=== PATIENT | male | born 1960 | race Caucasian/White ===

== ENCOUNTER 2022-09-23 10:51 | Inpatient (IN) ==
--- NOTE | 2022-09-07 08:51 | PAT Medication Instructions ---
Medication Instructions Date of Service September 07, 2022 Home Medications acetaminophen 650 mg tablet,extended release 1,300 mg PO Q12H PRN Pain cyclobenzaprine 10 mg tablet 10 mg PO TID PRN Pain dutasteride 0.5 mg capsule 0.5 mg PO QAM lisinopril 2.5 mg tablet 2.5 mg PO QAM metformin 1,000 mg tablet 1,000 mg PO BID rosuvastatin 40 mg tablet 40 mg PO QAM DO NOT take the morning of surgery cyclobenzaprine 10 mg tablet 10 mg PO TID PRN Pain lisinopril 2.5 mg tablet 2.5 mg PO QAM metformin 1,000 mg tablet 1,000 mg PO BID Take morning of surgery With a small sip of water, OTHERWISE NOTHING TO EAT OR DRINK AFTER MIDNIGHT: acetaminophen 650 mg tablet,extended release 1,300 mg PO Q12H PRN Pain (if needed) dutasteride 0.5 mg capsule 0.5 mg PO QAM rosuvastatin 40 mg tablet 40 mg PO QAM Take evening before surgery acetaminophen 650 mg tablet,extended release 1,300 mg PO Q12H PRN Pain (if needed) cyclobenzaprine 10 mg tablet 10 mg PO TID PRN Pain (if needed) metformin 1,000 mg tablet 1,000 mg PO BID Other Notes If you have any questions please call us at [phone] or [phone] or [phone] or [phone]
--- NOTE | 2022-09-09 08:58 | Anesthesiology Consultation ---
Date of Service September 09, 2022 Assessment & Plan (1) Encounter for pre-operative examination: - COVID screening: Per assessment on 09/09: No known COVID-19 positive contacts or current COVID-19 related symptoms. Travel screen negative. Patient vaccinated. At surgeon discretion if preop Covid testing being done. - Check [facility] AM DOS Chart Review Chart Review: Acceptable Risk for Surgery and Patient seen in Pre Admission Testing Teaching & Discussion Pre-Anesthesia Teaching/Discussion Notes: Instructed NPO after midnight before surgery,except medications with 15 cc of water. Medication instructions provided according to the PAT guidelines. History Surgery Operation Date: 09/23/22 07:45 Proposed Procedures p L4-S1 Decompression and Fusion, Spinal Cord Monitoring - Francisco High DO Height/Weight Height: 6 ft 1 in Weight: 95.6 kg Allergies Allergy/AdvReac Type Severity Reaction Status Date / Time No Known Drug Allergies Allergy Unknown NONE Verified 09/06/22 15:13 Medications Home Medications Medication Instructions Recorded Confirmed Last Taken acetaminophen 650 mg 1,300 mg PO Q12H PRN Pain 09/06/22 09/06/22 Unknown tablet,extended release cyclobenzaprine 10 mg tablet 10 mg PO TID PRN Pain 09/06/22 09/06/22 Unknown dutasteride 0.5 mg capsule 0.5 mg PO QAM 09/06/22 09/06/22 Unknown lisinopril 2.5 mg tablet 2.5 mg PO QAM 09/06/22 09/06/22 Unknown metformin 1,000 mg tablet 1,000 mg PO BID 09/06/22 09/06/22 Unknown rosuvastatin 40 mg tablet 40 mg PO QAM 09/06/22 09/06/22 Unknown Past Medical History Medical History BPH (benign prostatic hyperplasia) Diabetes mellitus, type 2 NIDDM Hyperlipidemia Hypertension Sleep apnea CPAP (compliant) Exercise / Class Metabolic Activity II 4-5 Yardwork/Stairs/Walk up hill Past Family History Family History Other No family history of adverse response to anesthesia Past Surgical History Surgical History H/O shoulder surgery SCOPE History of amputation RT THUMB (WORK INJURY) History of anesthesia reaction COMBATIVE History of colonoscopy History of esophagogastroduodenoscopy (EGD) History of prostate surgery GREENLIGHT LASER PROCEDURE History of surgery on arm RT BICEP TENDON REPAIR History of tooth extraction Past Anesthesia History No Family Hx of Anesthesia Complications and Other (Pt has been told combative with anesthesia emergence) History of PONV No Hx of PONV and No Hx of Motion Sickness Social History Smoking Status: Heavy tobacco smoker tobacco type: cigarettes Smoking cigarettes per day: 20-40 cigs/day (attempting to decrease/quit) Do You Dip or Chew Tobacco: No Hx Alcohol Use: Yes alcohol intake frequency: holidays/special occasions only Hx Substance Use: No substance use type: does not use Review of Systems Patient denies chest pain, shortness of breath, dyspnea on exertion, fever, chills, cough, wheezing, palpitations. Physical Exam Vital Signs VITALS BP 131/75 P 90 TEMP 98.8 SP02 98%RA RESP 16 PHYSICAL Full cervical extension range of motion. Full TMJ range of motion. TMD 3 finger breaths Mallampati Score 2 Dentition: intact Lungs: clear throughout to auscultation Cardiac: regular rate and rhythm, no murmurs noted Spine: normal Carotid arteries: negative bruit Extremities: no edema Lab Results Anesthesia Preop Results Results Anesthesia Widget: WBC 8.83 K/ul (4.8-10.8) 09/09/22 Hgb 15.4 g/dl (14.0-18.0) 09/09/22 Hct 45.8 % (42.0-52.0) 09/09/22 Plt 240 K/uL (130-400) 09/09/22 Na 137 mmol/L (136-145) 09/09/22 K 4.1 mmol/L (3.5-5.1) 09/09/22 Cl 106 mmol/L (98-107) 09/09/22 CO2 26 mmol/L (21-32) 09/09/22 BUN 18 mg/dl (6-23) 09/09/22 Creat 0.87 mg/dl (0.6-1.4) 09/09/22 Glucose Level 203 mg/dl (70-99(Fasting)) H 09/09/22 PT 10.5 Seconds (9.0-12.0) 09/09/22 PTT 27.3 Seconds (21.0-31.0) 09/09/22 INR 1.0 (0.9-1.1) 09/09/22 HA1c 7.5 % (4.5-5.6) H 09/09/22 Urine Color Yellow 09/09/22 Urine Appearance Clear (Clear) 09/09/22 Urine pH 7.5 (4.5-7.5) 09/09/22 Urine Specific [place] 1.022 (1.000-1.030) 09/09/22 Urine Protein Negative (Negative) 09/09/22 Urine Glucose (UA) 3+ (Negative) H 09/09/22 Urine Ketones Negative (Negative) 09/09/22 Urine Blood Trace (Negative) H 09/09/22 Urine Nitrite Negative (Negative) 09/09/22 Urine Bilirubin Negative (Negative) 09/09/22 Urine Urobilinogen Negative (Negative) 09/09/22 Urine Leukocyte Esterase Negative (Negative) 09/09/22 Urine WBC (Auto) 1-5 /hpf (0-5) 09/09/22 Urine RBC (Auto) 5-10 /hpf (0-4) H 09/09/22 Urine Hyaline Casts (Auto) 0 /lpf (0-5) 09/09/22 Urine Epithelial Cells (Auto) 0-5 /lpf (0-5) 09/09/22 Urine Bacteria (Auto) Negative (Negative) 09/09/22 Blood Type A Negative 09/09/22 Antibody Screen NEGATIVE 09/09/22 Testing Electrocardiogram Date: 09/09/22 SR with occasional PVCs at 92bpm. LAFB. PRWP, consider anterior [place] vs lead placement vs LVH. LAFB now present compared to 02/17/14 per airport refueling handler comparison. Pt reports good functional status and no cardiopulmonary complaints at PAT visit 09/09/22* Chest X-Ray Date: 09/09/22 Findings: + NAD COVID-19 Risk Screen Screening Information COVID-19 Screen Date: 09/09/22 Exposure 21 Days Family/Household +COVID Last 21 Days: No Exposure 10 Days Any COVID Exposure Last 10 Days: No Symptoms Last 10 Days Experienced COVID Sx Last 10 Days: No + COVID 0-90 Days COVID + in Last 0-90 Days: No
[~2022-09-23 10:51] MED LIST: ACETAMINOPHEN 500 MG TAB PO SCH; CeleBREX 200 MG CAP PO SCH; GABAPENTIN 600 MG DOSE PO SCH; LR 15ML/HR IV SCH; ceFAZolin 2000MG 2,000 MG/15 ML SYR IV SCH
[2022-09-23] MEDS ORDERED: LABETALOL HCL IV 5 MG/ML 20ML IV PRN (11:49)
[2022-09-23] MEDS ORDERED: ATROPINE SULFATE 0.1 MG/ML 10ML SYR IV PRN (11:49)
[2022-09-23] MEDS ORDERED: HYDROmorphone INJ 1 MG/ML SYRINGE IV PRN (11:49)
[2022-09-23] MEDS ORDERED: ALBUTEROL 0.083% NEBU SOLN 3 ML VIAL INH PRN (11:49)
[2022-09-23] MEDS ORDERED: ePHEDrine sulfate 50 MG/ML AMP IV PRN (11:49)
[2022-09-23] MEDS ORDERED: ONDANSETRON INJ 2 MG/ML 2 ML VIAL IV PRN ×2 (11:49→17:43)
--- NOTE | 2022-09-23 11:49 | Anesthesiology Consultation ---
Date of Service September 23, 2022 Assessment & Plan Consults Requested medical & cardiac Pulmonary ASA ASA3 Proposed Anesthesia Anesthesia Type: General History Surgery Operation Date: 09/23/22 12:25 Proposed Procedures p L4-S1 Decompression and Fusion, Spinal Cord Monitoring - Francisco High DO Height/Weight Height: 6 ft 1 in Weight: 94.9 kg Allergies Allergy/AdvReac Type Severity Reaction Status Date / Time No Known Drug Allergies Allergy Unknown NONE Verified 09/23/22 11:22 Medications Home Medications Medication Instructions Recorded Confirmed Last Taken acetaminophen 650 mg 1,300 mg PO Q12H PRN Pain 09/06/22 09/23/22 09/23/22 08:00 tablet,extended release cyclobenzaprine 10 mg tablet 10 mg PO TID PRN Pain 09/06/22 09/23/22 09/22/22 20:00 dutasteride 0.5 mg capsule 0.5 mg PO QAM 09/06/22 09/23/22 09/23/22 08:00 lisinopril 2.5 mg tablet 2.5 mg PO QAM 09/06/22 09/23/22 09/22/22 08:00 metformin 1,000 mg tablet 1,000 mg PO BID 09/06/22 09/23/22 09/22/22 20:00 rosuvastatin 40 mg tablet 40 mg PO QAM 09/06/22 09/23/22 09/23/22 08:00 Active Medications Generic Name Dose Route Start Last Admin Trade Name Freq PRN Reason Stop Dose Admin Acetaminophen 1,000 mg 09/23/22 06:00 09/23/22 11:28 Acetaminophen 500 Mg Tab PO 09/23/22 18:00 500 mg PREOP LITA Administration Celecoxib 200 mg 09/23/22 06:00 09/23/22 11:26 Celebrex 200 Mg Cap PO 09/23/22 18:00 200 mg PREOP LITA Administration Gabapentin 600 mg 09/23/22 06:00 09/23/22 11:27 Gabapentin 600 Mg Dose PO 09/23/22 18:00 600 mg PREOP LITA Administration Lactated Ringer's 1,000 mls @ 15 mls/hr 09/23/22 06:00 09/23/22 11:40 Lr IV 09/24/22 05:59 15 mls/hr .Q24H LITA Administration Past Medical History Medical History BPH (benign prostatic hyperplasia) Diabetes mellitus, type 2 NIDDM Hyperlipidemia Hypertension Sleep apnea CPAP (compliant) Past Family History Family History Other No family history of adverse response to anesthesia Past Surgical History Surgical History H/O shoulder surgery SCOPE History of amputation RT THUMB (WORK INJURY) History of anesthesia reaction COMBATIVE History of colonoscopy History of esophagogastroduodenoscopy (EGD) History of prostate surgery GREENLIGHT LASER PROCEDURE History of surgery on arm RT BICEP TENDON REPAIR History of tooth extraction Past Anesthesia History No Hx of Anesthesia Complications History of PONV No Hx of PONV Social History Smoking Status: Heavy tobacco smoker tobacco type: cigarettes Smoking cigarettes per day: 20-40 cigs/day (attempting to decrease/quit) Do You Dip or Chew Tobacco: No Hx Alcohol Use: Yes alcohol intake frequency: holidays/special occasions only Hx Substance Use: No substance use type: does not use Review of Systems Respiratory: no problem reported Cardiovascular: no problem reported Physical Exam Vital Signs Last Vital Signs Temp 37.1 C 09/23/22 11:16 Pulse 75 09/23/22 11:16 Resp 20 09/23/22 11:16 BP 114/78 09/23/22 11:16 Pulse Ox 98 09/23/22 11:16 O2 Del Method Room Air 09/23/22 11:16 ENMT Mallampati Class: II Neck normal visual inspection Respiratory normal respiratory effort; no respiratory distress Auscultation: lungs clear to auscultation bilaterally Cardiovascular Rate/Rhythm: regular rate and regular rhythm Psychiatric Orientation: alert and oriented x 3 Testing Laboratory Results 09/23/22 11:11 POC Glucose 141 H Electrocardiogram Date: 09/09/22 SR with occasional PVCs at 92bpm. LAFB. PRWP, consider anterior [place] vs lead placement vs LVH. LAFB now present compared to 02/17/14 per editorial cartoonist comparison. Pt reports good functional status and no cardiopulmonary complaints at PAT visit 09/09/22* Chest X-Ray Date: 09/09/22 Findings: + NAD
--- NOTE | 2022-09-23 13:27 | History & Physical Bridge Note ---
Date of Service September 23, 2022 History & Physical Bridge Note I have examined the patient, reviewed the History & Physical and in the interval since the performance of the History & Physical I have noted the following changes of clinical significance: no changes noted
--- NOTE | 2022-09-23 13:28 | History & Physical Report ---
Date of Service September 23, 2022 Assessment & Plan (1) Neurogenic claudication due to lumbar spinal stenosis: Plan: L4-S1 decompression and fusion History of Present Illness Chief Complaint: Back and leg pain Primary Care Provider: Kathy Abdi This is a 62-year-old male presents with chronic persistent back and leg pain after failing course of nonoperative care is here for surgical intervention. Allergies Allergy/AdvReac Type Severity Reaction Status Date / Time No Known Drug Allergies Allergy Unknown NONE Verified 09/23/22 11:22 Home Medications Medication Instructions Recorded Confirmed Type acetaminophen 650 mg 1,300 mg PO Q12H PRN Pain 09/06/22 09/23/22 History tablet,extended release cyclobenzaprine 10 mg tablet 10 mg PO TID PRN Pain 09/06/22 09/23/22 History dutasteride 0.5 mg capsule 0.5 mg PO QAM 09/06/22 09/23/22 History lisinopril 2.5 mg tablet 2.5 mg PO QAM 09/06/22 09/23/22 History metformin 1,000 mg tablet 1,000 mg PO BID 09/06/22 09/23/22 History rosuvastatin 40 mg tablet 40 mg PO QAM 09/06/22 09/23/22 History Past Med/Surg History Medical History BPH (benign prostatic hyperplasia) Diabetes mellitus, type 2 NIDDM Hyperlipidemia Hypertension Sleep apnea CPAP (compliant) Surgical History H/O shoulder surgery SCOPE History of amputation RT THUMB (WORK INJURY) History of anesthesia reaction COMBATIVE History of colonoscopy History of esophagogastroduodenoscopy (EGD) History of prostate surgery GREENLIGHT LASER PROCEDURE History of surgery on arm RT BICEP TENDON REPAIR History of tooth extraction Family History Other No family history of adverse response to anesthesia Social History Smoking Status: Heavy tobacco smoker Cigarettes Per Day: 20-40 cigs/day (attempting to decrease/quit); Second Hand Exposure: Yes; Do You Dip or Chew Tobacco: No; Hx Alcohol Use: Yes Hx Substance Use: No Preferred Language: Occitan Stick Welder Required: No Beliefs That Will Affect Care: None Current Living Situation: Spouse Feels Safe at Home: Yes Safety Concerns: Feels Safe At This Time Assistive Devices: CPAP and Glasses Assistive Devices Comment: READING GLASSES Physical Exam Physical Exam: Patient is alert and oriented Heart regular rhythm Lungs clear Results & Data Results & Data Vital Signs (Past 12 Hours) Vital Signs Temp Pulse Resp BP Pulse Ox O2 Del Method 09/23/22 11:16 37.1 C 75 20 114/78 98 Room Air
[2022-09-23] MEDS ORDERED: MIDAZOLAM HCL 1 MG/ML 2ML VIAL ONE (14:07)
[2022-09-23] MEDS ORDERED: fentaNYL citrate PF 100 MCG/2 ML VIAL ONE (14:07)
[2022-09-23] MEDS ORDERED: ROCURONIUM BROMIDE 10 MG/ML 5 ML VIAL IV ONE (14:07)
[2022-09-23] MEDS ORDERED: PROPOFOL IV EMULSION 10 MG/ML 20 ML VIAL IV ONE (14:07)
[2022-09-23] MEDS ORDERED: LIDOCAINE 2% MPF LOCAL 5 ML VIAL INFIL ONE (14:07)
[2022-09-23] MEDS ORDERED: ceFAZolin 330 MG/ML 1 GM VIAL ONE (14:18)
[2022-09-23] MEDS ORDERED: BUPIVACAINE/EPINEPHRINE 0.25% 1:200,000 30 ML VIAL ONE (14:18)
[2022-09-23] MEDS ORDERED: HYDROmorphone INJ 2 MG/ML SYR/VIAL ONE (15:00)
[2022-09-23] MEDS ORDERED: FLOSEAL HEMOSTATIC MATRIX 10ML TOP ONE (15:39)
[2022-09-23] MEDS ORDERED: SURGICEL ABSORB HEMOSTAT 2IN X 14IN TOP ONE (16:02)
[2022-09-23] MEDS ORDERED: NEOSTIGMINE METHYLSULFATE 1 MG/ML 10ML VIAL ONE (16:12)
[2022-09-23] MEDS ORDERED: GLYCOPYRROLATE 0.2 MG/ML VIAL ONE (16:12)
--- NOTE | 2022-09-23 16:19 | Operative Report ---
Post Operative Report Pre & Post Diagnosis Operation Date: 09/23/22 12:25 Pre-Op Diagnosis: Lumbar stenosis with severe foraminal disease and radiculopathy Post-Op Diagnosis: Same I identified the patient and participated in the time-out.: Yes Procedure Operation Date: 09/23/22 12:25 Actual Procedures #1 lumbar decompression bilaterally facetectomies and foraminotomies L3-L4, L4- L5 and L5-S1. #2 posterior spinal fusion L4-L5 L5-S1. #3 placement posterior instrumentation L4-L5 L5-S1. #4 interbody fusion L4-L5 L5-S1. #5 placement of Spira 14 x 26 mm cage at L4-L5 L5-S1. #6 placement locally harvested morselized autograft in the posterior gutters. #7 placement of I factor combined with V toss in the interbody space and posterior gutters. Surgeon Francisco High, Peanut Separator Giovanni Borja Estimated Blood Loss 300 Findings Consistent with Post-Op Diagnosis Specimens None Indications This is a 62-year-old male who presents above-mentioned diagnosis after failed course of nonoperative care is here for surgical invention. Description of Procedure Patient was met with identified informed consent obtained. Patient was then taken to the operative suite underwent a patient placed in a prone position the [place] table top Chaka frame. All bony prominences well-padded eyes inspected to ensure no external pressure placed upon the. This point the lumbar spine was prepped and draped in normal sterile fashion. Sharp dissection with the assistance of Bovie cautery performed down to and exposing the lamina and transverse processes of L4-5 and sacral ala bilaterally. And caudal cephalad fashion complete laminectomy of L5 L4 partial laminectomy L3 was performed including bilateral medial facetectomies and foraminotomies addressing severe spinal stenosis. Pedicle screws were then placed in the left for L5 and S1 levels bilaterally with assistance of fluoroscopy and appropriate sized mikhail placed. By way the transforaminal approach on the right complete discectomy of L5-S1 was performed endplates curetted to subcortical bleeding bone and a 14 x 26 mm Spira cage with I factor tapped in position. Then proceeded to L4-L5 again by way the transforaminal approach on the left complete discectomy was performed endplates curetted to subcortical bleeding bone and a 14 x 26 mm Spira cage with I factor tapped in position. The rods were then compressed locked into final position bilaterally. The transverse processes of L4-L5 and sacral ala burred to subcortical bleeding bone. I factor combined of the test and locally harvested morselized autograft was placed in the posterior gutters. 15 round STEVEN drain inserted. The incision was then closed with 1 Vicryl the fascia 2-0 Vicryl subcutaneously and 4 Monocryl for final skin closure. Steri-Strips sterile dressings placed. Patient waken taken to PACU stable condition. Please note spinal cord monitoring was utilized at the procedure no changes noted. Lastly Giovanni Borja was present at the entire surgery and while the patient positioning complex portion of the surgery and final skin closure. I attest to the content of the Intraoperative Record and any orders documented therein. Any exceptions are noted below.
--- NOTE | 2022-09-23 16:25 | Fluoroscopy Report ---
FL lumbar spine 2-3V CLINICAL HISTORY: L4-S1 DFI COMPARISON STUDY: None. FLUOROSCOPY TIME: 23 seconds FLUOROSCOPY IMAGES: 2 Ka,r: 18.6 mGy FINDINGS: Posterior decompression and fusion from L3 through S1 with pedicle screws and rods. The bo dware appears intact. IMPRESSION: Fluoroscopic assistance as above. ACT 112: Negative or not required by law. Electronically signed by: George Ambrosio M.D. 09/23/2022 4:23 PM
[2022-09-23] MEDS ORDERED: traMADol HCL 50 MG TABLET PO PRN (17:43)
[2022-09-23] MEDS ORDERED: diphenhydrAMINE Capsule 25 MG CAP PO PRN (17:43)
[2022-09-23] MEDS ORDERED: LORazepam 2 MG/1 ML VIAL IV PRN (17:43)
[2022-09-23] MEDS ORDERED: NALOXONE HCL 0.4 MG/1 ML VIAL/CARP IV PRN (17:43)
[2022-09-23] MEDS ORDERED: DO NOT ADMINISTER PNEUMOCOCCAL VACCINE PRN (17:43)
[2022-09-23] MEDS ORDERED: FAMOTIDINE 20 MG TAB PO PRN (17:43)
[2022-09-23] MEDS ORDERED: PROMETHAZINE HCL 12.5 MG in SODIUM CHLORIDE 0.9% 50 ML IV PRN (17:43)
[2022-09-23] MEDS ORDERED: ALUMINUM/MAGNESIUM SUSP 30 ML UDC PO PRN (17:43)
[2022-09-23] MEDS ORDERED: ACETAMINOPHEN 500 MG TAB PO PRN (17:43)
[2022-09-23] MEDS ORDERED: ACETAMINOPHEN 1,000 MG/100 ML VIAL IV PRN (17:43)
[2022-09-23] MEDS ORDERED: DO NOT ADMINISTER FLU VACCINE PRN (17:43)
[2022-09-23] MEDS ORDERED: HYDROmorphone INJ 0.5 MG/0.5 ML SYR IV PRN (17:43)
[2022-09-23] MEDS ORDERED: ONDANSETRON 4 MG OD TAB PO PRN (17:43)
[2022-09-23] MEDS ORDERED: hydrOXYzine HCl 25 MG TAB PO PRN (17:43)
[2022-09-23] MEDS ORDERED: PHARMACY GLYCEMIC MGMT CONSULT PRN (17:43)
[2022-09-23] MEDS ORDERED: METOCLOPRAMIDE HCL INJ 5 MG/ML 2 ML VIAL IV PRN (17:43)
[2022-09-23] MEDS ORDERED: bisacodyL 10 MG SUPP PR PRN (17:43)
[2022-09-23] MEDS ORDERED: MAGNESIUM HYDROXIDE SUSP 30 ML UDC PO PRN (17:43)
[2022-09-23] MEDS ORDERED: SOD PHOSPHATE/SOD BIPHOSPHATE ENEMA 132 ML BTL PR PRN (17:43)
--- NOTE | 2022-09-23 17:53 | Anesthesiology Progress Note ---
Date of Service September 23, 2022 Anesthesia Post Procedure Vital Signs Vital Signs: Temp Pulse Pulse Resp BP BP Pulse Ox 09/23/22 17:20 36.5 C 77 14 128/74 93 09/23/22 17:10 72 11 L 144/97 H 88 L 09/23/22 17:00 87 13 133/86 93 09/23/22 16:50 85 12 123/84 96 09/23/22 16:44 36.9 C 90 21 131/81 93 09/23/22 11:16 37.1 C 75 20 114/78 98 O2 Del Method O2 Flow Rate 09/23/22 17:20 Nasal Cannula 3 09/23/22 17:10 Room Air 09/23/22 17:00 Oxymask 10 09/23/22 16:50 Oxymask 10 09/23/22 16:44 Oxymask 10 09/23/22 11:16 Room Air Pain Intensity Lower Back: Pain Intensity: 6 Transfer of Care Handoff Completed per policy Notes Mental Status: alert / awake / arousable Patient Amnestic to Procedure: Yes Nausea / Vomiting: adequately controlled Pain: adequately controlled Airway Patency, RR, SpO2: stable & adequate BP & HR: stable & adequate Hydration State: stable & adequate Anesthetic Complications: no major complications apparent
--- NOTE | 2022-09-23 18:06 | Consultation ---
Date of Consultation September 23, 2022 Assessment & Plan (1) Status post lumbar surgery: (2) Neurogenic claudication due to lumbar spinal stenosis: Post op day# 0 S/P L3-S1 decompression and fusion by Dr Anila SYKES#300 mL -pain management per ortho -wound management per ortho -PT/OT as appropriate -DVT prophylaxis per ortho -incentive spirometry -monitor H&H for acute blood loss anemia, preop Hgb: 15.4 per chart review (3) Diabetes mellitus, type 2: A1c: 7.5 on 09/09/2022 per chart review -Hold home oral agents -NovoLog sliding scale per protocol. Monitor BSG may need to adjust (4) Hypertension: - Continue lisinopril (5) Hyperlipidemia: - Continue rosuvastatin (6) BPH (benign prostatic hyperplasia): - Continue dutasteride (7) Sleep apnea: - CPAP at bedtime (8) Tobacco use: - Smoking cessation encouraged -Nicotine patch DVT Prophylaxis -SCDs Disposition per primary service Follows with Kathy Abdi PA-C in [place], [place] for routine care Pt was seen and care coordinated with Dr Hinds. See addendum Thank you for this consultation. We will follow the patient with you during their hospital stay. You can reach a member of the [facility] Hospitalist Team 30/01 via [facility] Supervising Physician Co-Signing Physician Notes 62-year-old male with PMH of T2DM, HTN, BPH, HLD, tobacco use, IRENE seen as a consultation for medical management status post L3 S1 decompression and fusion today by Dr. High. Patient was lying semiupright in bed, on 3 L nasal cannula oxygen, alert and oriented, appeared little lethargic, reports improvement in his right greater than left lower extremity radicular pain, reports pain at operative site, denies any febrile illness/flulike illness in the last 1 week. Watch out for acute blood loss anemia. Labs in AM. Incentive spirometry. PT/OT/pain management/DVT prophylaxis. On exam: GENERAL: Alert and oriented x3. NAD, on 3 L nasal cannula oxygen. HEENT: No pallor, no icterus. Pupils equal, round and reactive to light. Oral mucosa moist. NECK: No JVD, no neck masses. HEART: S1 and S2 heard. Regular rate and rhythm. No murmur, no gallop. RESPIRATORY SYSTEM: Normal AP diameter. No accessory muscle use. No wheezing, no crackles. ABDOMEN: Soft, bowel sounds present, nontender, no distention. CENTRAL NERVOUS SYSTEM: No facial droop. Speech is clear. Obeys simple commands. Moves extremities. EXTREMITIES: No edema, no erythema seen. Lower back with clean dressing without soakage. STEVEN drain with moderate serosanguineous collection noted. Distal neurovascular status WNL. I have seen and examined the patient and have discussed the case with the provider above. I agree with the assessment and plan as stated. History of Present Illness Requesting Physician: Dr. High Reason for Consultation: Postop medical management Attending Physician: Francisco High, DO History of Present Illness Patient is 62-year-old male with PMH DM II, HTN, HLD, BPH, IRENE, tobacco use seen in medical consultation s/p L3-S1 decompression fusion today by Dr. High. Postop patient reports low back pain. States bilateral lower leg paresthesias which he had presurgery as well. Has Mock catheter in place. Reports last BM this morning. Denies fever/chills, N/V/D/C, THOMAS, dizziness, CP, SOB, cough, sore throat, rhinorrhea, abdominal pain, extremity weakness, extremity edema, rashes, urinary symptoms. Allergies Allergy/AdvReac Type Severity Reaction Status Date / Time No Known Drug Allergies Allergy Unknown NONE Verified 09/23/22 11:22 Home Medications Medication Instructions Recorded Confirmed Type acetaminophen 650 mg 1,300 mg PO Q12H PRN Pain 09/06/22 09/23/22 History tablet,extended release cyclobenzaprine 10 mg tablet 10 mg PO TID PRN Pain 09/06/22 09/23/22 History dutasteride 0.5 mg capsule 0.5 mg PO QAM 09/06/22 09/23/22 History lisinopril 2.5 mg tablet 2.5 mg PO QAM 09/06/22 09/23/22 History metformin 1,000 mg tablet 1,000 mg PO BID 09/06/22 09/23/22 History rosuvastatin 40 mg tablet 40 mg PO QAM 09/06/22 09/23/22 History Patient History Medical History BPH (benign prostatic hyperplasia) Diabetes mellitus, type 2 NIDDM Hyperlipidemia Hypertension Sleep apnea CPAP (compliant) Tobacco use Surgical History (Updated 09/23/22 @ 18:20 by Dorothea Harden PA-C) H/O shoulder surgery SCOPE History of amputation RT THUMB (WORK INJURY) History of anesthesia reaction COMBATIVE History of colonoscopy History of esophagogastroduodenoscopy (EGD) History of prostate surgery GREENLIGHT LASER PROCEDURE History of surgery on arm RT BICEP TENDON REPAIR History of tooth extraction Family History Other No family history of adverse response to anesthesia Social History Smoking Status: Heavy tobacco smoker Cigarettes Per Day: 20-40 cigs/day (attempting to decrease/quit); Second Hand Exposure: Yes; Do You Dip or Chew Tobacco: No; Hx Alcohol Use: Yes Hx Substance Use: No Preferred Language: Kyrgyz Director Of Fundraising Required: No Beliefs That Will Affect Care: None Current Living Situation: Spouse Feels Safe at Home: Yes Safety Concerns: Feels Safe At This Time Assistive Devices: CPAP and Glasses Assistive Devices Comment: READING GLASSES Review of Systems Review of Systems: All systems reviewed & are unremarkable except as noted in HPI & below Physical Exam Physical Exam: General: mild distress secondary to pain, WDWN Head: normocephalic, atraumatic Eyes: conjunctiva non-injected, anicteric ENT: normal inspection external ears, nose, mucous membranes moist Neck: supple, trachea midline Lungs: clear, no respiratory distress, no wheezing/rhonchi/rales CV: RRR, no murmur, no pretibial edema Abd: normal BS, soft, non-tender Back: surgical dressing in place, STEVEN drain in place with serosanguineous drainage Ext: no cyanosis, no calf tenderness, bilateral pedal pushes and pulls intact, distal pulses intact, sensation to light touch intact bilaterally Neuro: A&O x 3, no focal deficits noted, normal affect Skin: warm, dry Results & Data Vital Signs (Past 12 Hours) Vital Signs Temp Pulse Pulse Resp BP BP Pulse Ox 09/23/22 17:20 36.5 C 77 14 128/74 93 09/23/22 17:10 72 11 L 144/97 H 88 L 09/23/22 17:00 87 13 133/86 93 09/23/22 16:50 85 12 123/84 96 09/23/22 16:44 36.9 C 90 21 131/81 93 09/23/22 11:16 37.1 C 75 20 114/78 98 O2 Del Method O2 Flow Rate 09/23/22 17:20 Nasal Cannula 3 09/23/22 17:10 Room Air 09/23/22 17:00 Oxymask 10 09/23/22 16:50 Oxymask 10 09/23/22 16:44 Oxymask 10 09/23/22 11:16 Room Air
[2022-09-23] MEDS ORDERED: GLUCAGON FOR INJ 1 MG VIAL SQ PRN (18:22)
[2022-09-23] MEDS ORDERED: CARBOHYDRATES FOR HYPOGLYCEMIA PO PRN (18:22)
[2022-09-23] MEDS ORDERED: GLUCOSE 10 TAB/TUBE PO PRN (18:22)
[2022-09-23] MEDS ORDERED: GLUCOSE 40% GEL 15 GM TUBE PO PRN (18:22)
[2022-09-23] MEDS ORDERED: DEXTROSE 50% 50 ML SYRINGE IV PRN (18:22)
[2022-09-23] MEDS: HYDROmorphone INJ 1 MG/ML SYRINGE IV PRN (18:32)
[2022-09-23] MEDS: LACTATED RINGER'S 1,000 ML IV SCH ×2 (18:50→20:07)
[2022-09-23] MEDS: NICOTINE 21 MG/24 HR TDSY TD SCH (19:50)
[2022-09-23] MEDS: oxyCODONE HCL IR 5 MG TAB (IMMEDIATE RELEASE) PO PRN (20:03)
[2022-09-23] MEDS: DOCUSATE SODIUM/SENNA 50/8.6MG TAB PO SCH (22:08)
[2022-09-23] MEDS: INSULIN ASPART PER UNIT CHARGE SC SCH (22:09)
[2022-09-23] MEDS: ceFAZolin 2000MG 2,000 MG/15 ML SYR IV SCH (22:09)
[2022-09-24] MEDS: INSULIN ASPART PER UNIT CHARGE SC SCH ×6 (00:11→20:24)
[2022-09-24] MEDS: DUTASTERIDE 0.5 MG SCH ×3 (00:14→15:21)
[2022-09-24] MEDS: LACTATED RINGER'S 1,000 ML IV SCH ×2 (02:55→10:55)
[2022-09-24] MEDS: POLYETHYLENE (MIRALAX) 17 GM PACK PO SCH ×3 (06:16→17:23)
[2022-09-24] MEDS: ceFAZolin 2000MG 2,000 MG/15 ML SYR IV SCH (06:17)
[2022-09-24 06:29] LABS: Basophils # (auto) 0.03 K/uL (0-0.2); Basophils % (auto) 0.2 %; Eosinophils # (auto) 0.04 K/uL (0-0.50); Eosinophils % (auto) 0.2 %; Hemoglobin 13.5 g/dl (14.0-18.0); Immature Granulocytes # (auto) 0.11 K/uL (0.01-0.20); Immature Granulocytes % (auto) 0.6 %; Lymphocytes # (auto) 2.14 K/uL (1.2-3.4); Lymphocytes % (auto) 11.9 %; Mean Corpuscular Hemoglobin 31.7 pg (25.0-34.0); Mean Corpuscular Hgb Conc 33.8 g/dL (32.0-36.0); Mean Corpuscular Volume 93.9 fL (80.0-100.0); Mean Platelet Volume 9.7 fL (9.4-12.4); Monocytes # (auto) 1.92 K/uL (0.11-0.59); Monocytes % (auto) 10.7 %; Neutrophils % (auto) 76.4 %; Platelet Count 240 K/uL (130-400); RDW Coefficient of Variation 13.2 % (11.5-14.5); RDW Standard Deviation 45.1 fL (36.4-46.3); Red Blood Count 4.26 M/uL (4.70-6.10); White Blood Count 17.94 K/ul (4.8-10.8)
[2022-09-24 06:37] LABS: BUN Creatinine Ratio 16.7 (10-20); Calcium 8.5 mg/dl (8.5-10.1); Creatinine Clr Calc Pharmacy 108.1 ml/min; Est GFR (African American) 110.6 ml/min; Est GFR (Non-African American) 95.4 ml/min; Potassium 4.3 mmol/L (3.5-5.1)
[2022-09-24] MEDS: HYDROmorphone INJ 1 MG/ML SYRINGE IV PRN (07:30)
[2022-09-24] MEDS: dexAMETHasone 6 MG in SYRINGE 0 ML IV SCH (08:20)
[2022-09-24] MEDS: NICOTINE 21 MG/24 HR TDSY TD SCH (08:24)
[2022-09-24] MEDS: LANTUS PER UNIT CHARGE SQ SCH (09:24)
[2022-09-24] MEDS: ROSUVASTATIN CALCIUM 20 MG TAB PO SCH (09:27)
[2022-09-24] MEDS: lisinopril 2.5 MG TAB PO SCH (09:27)
[2022-09-24] MEDS: oxyCODONE HCL IR 5 MG TAB (IMMEDIATE RELEASE) PO PRN ×4 (09:45→21:51)
--- NOTE | 2022-09-24 11:18 | Orthopedic Progress Note ---
Date of Service September 24, 2022 Assessment & Plan (1) Neurogenic claudication due to lumbar spinal stenosis: Plan: At this time we will continue physical therapy monitor his STEVEN operatively discharge home in the next few days. Admission and Anticipated Discharge Date Admission Date: September 23, 2022 Subjective Back pain controlled leg pain improved Physical Exam Physical Exam: Patient is up and ambulating with a walker. Is good strength testing. Results & Data Vital Signs (Past 12 Hours) Vital Signs Temp Pulse Resp BP Pulse Ox O2 Del Method 09/24/22 07:30 36.9 C 85 18 122/85 98 Room Air 09/24/22 03:00 94 H 18 124/77 95 CPAP
--- NOTE | 2022-09-24 14:15 | Hospitalist Progress Note ---
Date of Service September 24, 2022 Assessment & Plan (1) Status post lumbar surgery: (2) Neurogenic claudication due to lumbar spinal stenosis: Plan: Post op 09/23/2022, day# 1 S/P L3-S1 decompression and fusion by Dr Anila SYKES#300 mL -pain management per ortho -wound management per ortho -PT/OT as appropriate -DVT prophylaxis per ortho -incentive spirometry -monitor H&H for acute blood loss anemia, preop Hgb: 15.4 per chart review -Hemoglobin hemoglobin remains stable at 13.5 (3) Diabetes mellitus, type 2: Plan: A1c: 7.5 on 09/09/2022 per chart review -Hold home oral agents -NovoLog sliding scale per protocol. Monitor BSG may need to adjust (4) Hypertension: Plan: - Continue lisinopril -Blood pressure is maintained at the upper limit at 146/89 (5) Hyperlipidemia: Plan: - Continue rosuvastatin (6) BPH (benign prostatic hyperplasia): Plan: - Continue dutasteride (7) Sleep apnea: Plan: - CPAP at bedtime (8) Tobacco use: Plan: - Smoking cessation encouraged -Nicotine patch DVT Prophylaxis -SCDs Disposition per primary service Follows with Kathy Abdi PA-C in [place], [place] for routine care Admission and Anticipated Discharge Date Admission Date: September 23, 2022 Subjective 09/24/2022 The patient was seen and examined in medical floor He is a status post L4 S1 decompression and fusion Complains to have some back pain but denies any other symptoms Review of Systems Review of Systems: All systems reviewed and are unremarkable except as noted below Physical Exam Physical Exam: Sitting on a chair without any acute Constitutional: well developed, well nourished, + ill appearing and + obese Eyes: PERRL, conjunctivae normal, anicteric sclerae ENMT: external ear and nose normal, oropharynx normal Neck: trachea midline, no thyromegaly Respiratory: no respiratory distress Auscultation: lungs clear to auscultation bilaterally Cardiovascular: Rate/Rhythm: regular rate, regular rhythm and + tachycardic Heart Sounds: normal S1 and normal S2; no murmur Extremities: no edema Gastrointestinal (Abdomen): Inspection/Auscultation: normal bowel sounds; abdomen not distended Percussion/Palpation: abdomen soft; abdomen nontender Musculoskeletal: Back pain with tenderness at the lumbosacral area. No acute arthritis in any other joint Neurologic: normal touch/pain/proprioception and moves all extremities; no focal motor deficits Psychiatric: A+Ox3, euthymic affect Lymphatic: no cervical or axillary lymphadenopathy Results & Data Results & Data Vital Signs (Past 12 Hours) Vital Signs Temp Pulse Resp BP Pulse Ox O2 Del Method 09/24/22 11:48 36.8 C 100 H 19 146/89 H 95 Room Air 09/24/22 07:30 36.9 C 85 18 122/85 98 Room Air 09/24/22 03:00 94 H 18 124/77 95 CPAP Laboratory Results Short CBC 09/24/22 Range/Units 05:44 WBC 17.94 H (4.8-10.8) K/ul Hgb 13.5 L (14.0-18.0) g/dl Hct 40.0 L (42.0-52.0) % Plt Count 240 (130-400) K/uL BMP 09/24/22 05:44 Sodium 139 Potassium 4.3 Chloride 106 Carbon Dioxide 30 BUN 13 Creatinine 0.78 Glucose 125 H Calcium 8.5 Medications Administered Current Inpatient Medications Acetaminophen (Acetaminophen 500 Mg Tab) 1,000 mg PO Q8H PRN PRN Reason: MILD Pain Scale 1,2,3 & Pre PT Stop: 10/23/22 17:42 Al Hydrox/Mg Hydrox/Simethicone (Aluminum/Magnesium Susp 30 Ml Udc) 30 ml PO Q6H PRN PRN Reason: Dyspepsia Stop: 10/23/22 17:42 Bisacodyl (Bisacodyl 10 Mg Supp) 10 mg ME DAILY PRN PRN Reason: Constipation Stop: 10/23/22 17:42 Dextrose (Dextrose 50% 50 Ml Syringe) 25 - 50 ml IV UD PRN; Protocol PRN Reason: Hypoglycemia Protocol Stop: 10/23/22 18:21 Diphenhydramine HCl (Diphenhydramine Capsule 25 Mg Cap) 25 mg PO Q6H PRN PRN Reason: Allergic Rhinitis/Insomnia Stop: 10/23/22 17:42 Famotidine (Famotidine 20 Mg Tab) 20 mg PO Q12H PRN PRN Reason: Dyspepsia Stop: 10/23/22 17:42 Glucagon (Glucagon For Inj 1 Mg Vial) 1 mg SQ UD PRN; Protocol PRN Reason: Hypoglycemia Protocol Stop: 10/23/22 18:21 Glucose (Glucose 10 Tab/Tube) 4 - 8 tab PO UD PRN; Protocol PRN Reason: Hypoglycemia Treatment Stop: 10/23/22 18:21 Glucose (Glucose 40% Gel 15 Gm Tube) 15 - 30 gm PO UD PRN; Protocol PRN Reason: Hypoglycemia Protocol Stop: 10/23/22 18:21 Hydromorphone HCl (Hydromorphone Inj 0.5 Mg/0.5 Ml Syr) 0.5 mg IV Q3H PRN PRN Reason: MODERATE Pain (Scale 4,5,6) & Pre PT Stop: 10/07/22 17:42 Hydromorphone HCl (Hydromorphone Inj 1 Mg/Ml Syringe) 1 mg IV Q3H PRN PRN Reason: SEVERE Pain (Scale 7,8,9,10) Stop: 10/07/22 17:42 Last Admin: 09/24/22 07:30 Dose: 1 mg Hydroxyzine HCl (Hydroxyzine Hcl 25 Mg Tab) 25 mg PO Q8H PRN PRN Reason: Anxiety Stop: 10/23/22 17:42 Acetaminophen (Ofirmev) 1,000 mg in 100 mls @ 400 mls/hr IV Q8H PRN PRN Reason: Pain Rating 1-3 & Pre PT Stop: 09/24/22 17:43 Dexamethasone 6 mg/ Syringe 1.5 mls @ 1 mls/min IV DAILY [facility] Stop: 09/26/22 09:02 Last Admin: 09/24/22 08:20 Dose: 1 mls/min Lactated Ringer's (Lr) 1,000 mls @ 150 mls/hr IV .Q6H40M [facility] Stop: 10/23/22 17:42 Last Admin: 09/24/22 10:55 Dose: Not Given Promethazine HCl 12.5 mg/ (Sodium Chloride) 50.5 mls @ 202 mls/hr IV Q6H PRN PRN Reason: Nausea &/or Vomiting Stop: 10/23/22 17:42 Influenza Virus Vaccine Quadrival (Do Not Administer Flu Vaccine) 1 each N/A PRN PRN PRN Reason: Notification Stop: 10/23/22 17:42 Insulin Aspart (Insulin Aspart Per Unit) 0 units SC ACHS [facility] Stop: 10/23/22 20:59 Last Admin: 09/24/22 13:48 Dose: 12 units Insulin Glargine (Lantus Per Unit Charge) 10 units SQ [facility] Stop: 10/24/22 08:59 Last Admin: 09/24/22 09:24 Dose: 10 units Lisinopril (Lisinopril 2.5 Mg Tab) [facility] [place] Stop: 10/24/22 08:59 Last Admin: 09/24/22 09:27 Dose: 2.5 mg Lorazepam (Lorazepam 0.5 Mg Tab) 0.5 mg PO Q8H PRN PRN Reason: Sedation/Anxiety Stop: 10/23/22 17:42 Lorazepam (Lorazepam 2 Mg/1 Ml Vial) 0.5 mg IV Q8H PRN PRN Reason: Sedation/Anxiety Stop: 10/23/22 17:42 Last Admin: 09/24/22 08:17 Dose: 0.5 mg Magnesium Hydroxide (Magnesium Hydroxide Susp 30 Ml Udc) 30 ml PO Q24H PRN PRN Reason: Constipation Stop: 10/23/22 17:42 Metoclopramide HCl (Metoclopramide Hcl Inj 5 Mg/Ml 2 Ml Vial) 10 mg IV Q6H PRN PRN Reason: Nausea &/or Vomiting Stop: 10/23/22 17:42 Miscellaneous (Dutasteride 0.5 Mg Capsule~Order Awaiting Action) 1 each N/A QS [facility] Stop: 10/24/22 00:00 Last Admin: 09/24/22 10:44 Dose: Not Given Miscellaneous (Remove Nicoderm Patch) 1 each N/A DAILY@0859 [facility] Stop: 10/24/22 08:58 Last Admin: 09/24/22 08:23 Dose: Not Given Miscellaneous (Carbohydrates For Hypoglycemia ) 15 - 30 gm PO UD PRN PRN Reason: Hypoglycemia Protocol Stop: 10/23/22 18:21 Miscellaneous Information (Pharmacy Glycemic Mgmt Consult) 1 each N/A UD PRN PRN Reason: Consult Stop: 10/23/22 17:42 Naloxone HCl (Naloxone Hcl 0.4 Mg/1 Ml Vial/Carp) 0.1 mg IV Q5M PRN PRN Reason: Oversedation/Resp depression Stop: 10/23/22 17:42 Nicotine (Nicotine 21 Mg/24 Hr Tdsy) 21 mg TD [facility] Stop: 10/23/22 18:29 Last Admin: 09/24/22 08:24 Dose: 21 mg Ondansetron HCl (Ondansetron Inj 2 Mg/Ml 2 Ml Vial) 4 mg IV Q6H PRN PRN Reason: Nausea &/or Vomiting Stop: 10/23/22 17:42 Ondansetron HCl (Ondansetron 4 Mg Od Tab) 4 mg PO Q6H PRN PRN Reason: Nausea Stop: 10/23/22 17:42 Oxycodone HCl (Oxycodone Hcl Ir 5 Mg Tab (Immediate Release)) 5 - 10 mg PO Q4H PRN PRN Reason: Pain & Pre PT Stop: 10/07/22 17:42 Last Admin: 09/24/22 13:52 Dose: 10 mg Pneumococcal Polyvalent Vaccine (Do Not Administer Pneumococcal Vaccine) 1 each N/A PRN PRN PRN Reason: Notification Stop: 10/23/22 17:42 Polyethylene Glycol (Polyethylene (Miralax) 17 Gm Pack) 17 gm PO Q6 [facility] Stop: 10/24/22 05:59 Last Admin: 09/24/22 11:57 Dose: 17 gm Rosuvastatin Calcium (Rosuvastatin Calcium 20 Mg Tab) 40 mg PO QAM [facility] Stop: 10/24/22 08:59 Last Admin: 09/24/22 09:27 Dose: 40 mg Senna/Docusate Sodium (Docusate Sodium/Senna 50/8.6mg Tab) 2 tab PO HS [facility] Stop: 10/23/22 20:59 Last Admin: 09/23/22 22:08 Dose: 2 tab Sodium Biphosphate/Sodium Phosphate (Sod Phosphate/Sod Biphosphate Enema 132 Ml Btl) 132 ml ME ONE PRN PRN Reason: Constipation Stop: 10/23/22 17:42 Tramadol HCl (Tramadol Hcl 50 Mg Tablet) 50 - 100 mg PO Q4H PRN PRN Reason: Moderate-Severe pain & Pre PT Stop: 10/23/22 17:42
[2022-09-24] MEDS: LORazepam 0.5 MG TAB PO PRN (18:14)
[2022-09-24] MEDS ORDERED: BACLOFEN 10 MG TAB PO ONE (19:36)
[2022-09-24] MEDS: DOCUSATE SODIUM/SENNA 50/8.6MG TAB PO SCH (20:22)
[2022-09-25] MEDS: DUTASTERIDE 0.5 MG SCH ×3 (00:14→15:58)
[2022-09-25] MEDS: POLYETHYLENE (MIRALAX) 17 GM PACK PO SCH ×5 (00:54→22:33)
[2022-09-25] MEDS: oxyCODONE HCL IR 5 MG TAB (IMMEDIATE RELEASE) PO PRN ×5 (03:43→22:29)
[2022-09-25] MEDS ORDERED: BACLOFEN 10 MG TAB PO STA (04:52)
[2022-09-25 06:22] LABS: BUN Creatinine Ratio 16.3 (10-20); Creatinine Clr Calc Pharmacy 105.4 ml/min; Est GFR (African American) 109.4 ml/min; Est GFR (Non-African American) 94.4 ml/min; Potassium 3.5 mmol/L (3.5-5.1)
[2022-09-25 06:34] LABS: Basophils # (auto) 0.05 K/uL (0-0.2); Basophils % (auto) 0.3 %; Eosinophils # (auto) 0.13 K/uL (0-0.50); Eosinophils % (auto) 0.7 %; Hematocrit (blood only) 41.9 % (42.0-52.0); Hemoglobin 14.3 g/dl (14.0-18.0); Immature Granulocytes # (auto) 0.14 K/uL (0.01-0.20); Immature Granulocytes % (auto) 0.8 %; Lymphocytes % (auto) 12.8 %; Mean Corpuscular Hemoglobin 31.9 pg (25.0-34.0); Mean Corpuscular Hgb Conc 34.1 g/dL (32.0-36.0); Mean Corpuscular Volume 93.5 fL (80.0-100.0); Monocytes # (auto) 2.28 K/uL (0.11-0.59); Monocytes % (auto) 12.7 %; Neutrophils # (auto) 13.05 K/uL (1.40-6.50); Neutrophils % (auto) 72.7 %; Platelet Count 264 K/uL (130-400); RDW Coefficient of Variation 13.2 % (11.5-14.5); Red Blood Count 4.48 M/uL (4.70-6.10); White Blood Count 17.95 K/ul (4.8-10.8)
[2022-09-25] MEDS: dexAMETHasone 6 MG in SYRINGE 0 ML IV SCH (07:33)
[2022-09-25] MEDS: lisinopril 2.5 MG TAB PO SCH (07:33)
[2022-09-25] MEDS: ROSUVASTATIN CALCIUM 20 MG TAB PO SCH (07:34)
[2022-09-25] MEDS: NICOTINE 21 MG/24 HR TDSY TD SCH (07:36)
--- NOTE | 2022-09-25 08:04 | Orthopedic Progress Note ---
Date of Service September 25, 2022 Assessment & Plan (1) Neurogenic claudication due to lumbar spinal stenosis: Plan: At this time we will continue physical therapy monitor his STEVEN output. Have added a muscle relaxer in the event his spasms continue. We will hopefully discharge home tomorrow. Admission and Anticipated Discharge Date Admission Date: September 23, 2022 Subjective Patient's leg pain is improved. He is struggling with back spasms. Physical Exam Physical Exam: Patient is in the chair at the bedside. He is distracted testing. STEVEN drain is functional. Results & Data Vital Signs (Past 12 Hours) Vital Signs Temp Pulse Resp BP Pulse Ox O2 Del Method 09/25/22 01:07 36.4 C L 110 H 16 127/84 94 Room Air
[2022-09-25] MEDS: INSULIN ASPART PER UNIT CHARGE SC SCH ×4 (08:50→20:21)
[2022-09-25] MEDS: LORazepam 0.5 MG TAB PO PRN ×2 (08:54→20:15)
[2022-09-25] MEDS: LANTUS PER UNIT CHARGE SQ SCH (08:54)
[2022-09-25] MEDS: CYCLOBENZAPRINE HCL 10 MG TAB PO PRN ×2 (12:57→21:20)
--- NOTE | 2022-09-25 13:23 | Hospitalist Progress Note ---
Date of Service September 25, 2022 Assessment & Plan (1) Status post lumbar surgery: (2) Neurogenic claudication due to lumbar spinal stenosis: Plan: Post op 09/23/2022, day#2 S/P L3-S1 decompression and fusion by Dr Anila SYKES#300 mL -pain management per ortho -wound management per ortho -PT/OT as appropriate -DVT prophylaxis per ortho -incentive spirometry -monitor H&H for acute blood loss anemia, preop Hgb: 15.4 per chart review -Hemoglobin hemoglobin remains stable at 13.5 -Hemoglobin remains stable at 14.3 with normal electrolytes and kidney function (3) Diabetes mellitus, type 2: Plan: A1c: 7.5 on 09/09/2022 per chart review -Hold home oral agents -NovoLog sliding scale per protocol. Monitor BSG may need to adjust Blood sugar is stable (4) Hypertension: Plan: - Continue lisinopril -Blood pressure is maintained at the upper limit at 146/89 (5) Hyperlipidemia: Plan: - Continue rosuvastatin (6) BPH (benign prostatic hyperplasia): Plan: - Continue dutasteride (7) Sleep apnea: Plan: - CPAP at bedtime (8) Tobacco use: Plan: - Smoking cessation encouraged -Nicotine patch DVT Prophylaxis -SCDs Disposition per primary service Follows with Kathy Abdi PA-C in [place] for routine care Medically stable to be discharged Admission and Anticipated Discharge Date Admission Date: September 23, 2022 Subjective 09/24/2022 The patient was seen and examined in medical floor He is a status post L4 S1 decompression and fusion Complains to have some back pain but denies any other symptoms 09/25/2022 The patient was seen and examined in medical floor He has been feeling much better with minimal pain at the back Has been getting PT and OT evaluation and likely discharge tomorrow Review of Systems Review of Systems: All systems reviewed and are unremarkable except as noted below Physical Exam Physical Exam: Sitting on a chair without any acute Constitutional: well developed, well nourished, + ill appearing and + obese Eyes: PERRL, conjunctivae normal, anicteric sclerae ENMT: external ear and nose normal, oropharynx normal Neck: trachea midline, no thyromegaly Respiratory: no respiratory distress Auscultation: lungs clear to auscultation bilaterally Cardiovascular: Rate/Rhythm: regular rate, regular rhythm and + tachycardic Heart Sounds: normal S1 and normal S2; no murmur Extremities: no edema Gastrointestinal (Abdomen): Inspection/Auscultation: normal bowel sounds; abdomen not distended Percussion/Palpation: abdomen soft; abdomen nontender Neurologic: normal touch/pain/proprioception and moves all extremities; no focal motor deficits Psychiatric: A+Ox3, euthymic affect Lymphatic: no cervical or axillary lymphadenopathy Results & Data Results & Data Vital Signs (Past 12 Hours) Vital Signs Temp Resp BP Pulse Ox O2 Del Method 09/25/22 11:43 36.6 C 18 122/82 94 Room Air 09/25/22 07:45 Room Air 09/25/22 08:00 36.6 C 18 120/82 94 Room Air Laboratory Results Short CBC 09/25/22 Range/Units 05:43 WBC 17.95 H (4.8-10.8) K/ul Hgb 14.3 (14.0-18.0) g/dl Hct 41.9 L (42.0-52.0) % Plt Count 264 (130-400) K/uL BMP 09/25/22 05:43 Sodium 137 Potassium 3.5 Chloride 102 Carbon Dioxide 28 BUN 13 Creatinine 0.80 Glucose 155 H Calcium 9.0 Medications Administered Current Inpatient Medications Acetaminophen (Acetaminophen 500 Mg Tab) 1,000 mg PO Q8H PRN PRN Reason: MILD Pain Scale 1,2,3 & Pre PT Stop: 10/23/22 17:42 Al Hydrox/Mg Hydrox/Simethicone (Aluminum/Magnesium Susp 30 Ml Udc) 30 ml PO Q6H PRN PRN Reason: Dyspepsia Stop: 10/23/22 17:42 Bisacodyl (Bisacodyl 10 Mg Supp) 10 mg MT DAILY PRN PRN Reason: Constipation Stop: 10/23/22 17:42 Cyclobenzaprine HCl (Cyclobenzaprine Hcl 10 Mg Tab) 10 mg PO Q8 PRN PRN Reason: Muscle Spasm Stop: 10/25/22 07:29 Last Admin: 09/25/22 12:57 Dose: 10 mg Dextrose (Dextrose 50% 50 Ml Syringe) 25 - 50 ml IV UD PRN; Protocol PRN Reason: Hypoglycemia Protocol Stop: 10/23/22 18:21 Diphenhydramine HCl (Diphenhydramine Capsule 25 Mg Cap) 25 mg PO Q6H PRN PRN Reason: Allergic Rhinitis/Insomnia Stop: 10/23/22 17:42 Famotidine (Famotidine 20 Mg Tab) 20 mg PO Q12H PRN PRN Reason: Dyspepsia Stop: 10/23/22 17:42 Glucagon (Glucagon For Inj 1 Mg Vial) 1 mg SQ UD PRN; Protocol PRN Reason: Hypoglycemia Protocol Stop: 10/23/22 18:21 Glucose (Glucose 10 Tab/Tube) 4 - 8 tab PO UD PRN; Protocol PRN Reason: Hypoglycemia Treatment Stop: 10/23/22 18:21 Glucose (Glucose 40% Gel 15 Gm Tube) 15 - 30 gm PO UD PRN; Protocol PRN Reason: Hypoglycemia Protocol Stop: 10/23/22 18:21 Hydromorphone HCl (Hydromorphone Inj 0.5 Mg/0.5 Ml Syr) 0.5 mg IV Q3H PRN PRN Reason: MODERATE Pain (Scale 4,5,6) & Pre PT Stop: 10/07/22 17:42 Last Admin: 09/25/22 00:59 Dose: 0.5 mg Hydromorphone HCl (Hydromorphone Inj 1 Mg/Ml Syringe) 1 mg IV Q3H PRN PRN Reason: SEVERE Pain (Scale 7,8,9,10) Stop: 10/07/22 17:42 Last Admin: 09/24/22 07:30 Dose: 1 mg Hydroxyzine HCl (Hydroxyzine Hcl 25 Mg Tab) 25 mg PO Q8H PRN PRN Reason: Anxiety Stop: 10/23/22 17:42 Dexamethasone 6 mg/ Syringe 1.5 mls @ 1 mls/min IV DAILY LITA Stop: 09/26/22 09:02 Last Admin: 09/25/22 07:33 Dose: 1 mls/min Promethazine HCl 12.5 mg/ (Sodium Chloride) 50.5 mls @ 202 mls/hr IV Q6H PRN PRN Reason: Nausea &/or Vomiting Stop: 10/23/22 17:42 Influenza Virus Vaccine Quadrival (Do Not Administer Flu Vaccine) 1 each N/A PRN PRN PRN Reason: Notification Stop: 10/23/22 17:42 Insulin Aspart (Insulin Aspart Per Unit) 0 units SC ACHS LITA Stop: 10/23/22 20:59 Last Admin: 09/25/22 12:57 Dose: 12 units Insulin Glargine (Lantus Per Unit Charge) 10 units SQ QAM [facility] Stop: 10/24/22 08:59 Last Admin: 09/25/22 08:54 Dose: 10 units Lisinopril (Lisinopril 2.5 Mg Tab) 2.5 mg PO QAM [facility] Stop: 10/24/22 08:59 Last Admin: 09/25/22 07:33 Dose: 2.5 mg Lorazepam (Lorazepam 0.5 Mg Tab) 0.5 mg PO Q8H PRN PRN Reason: Sedation/Anxiety Stop: 10/23/22 17:42 Last Admin: 09/25/22 08:54 Dose: 0.5 mg Lorazepam (Lorazepam 2 Mg/1 Ml Vial) 0.5 mg IV Q8H PRN PRN Reason: Sedation/Anxiety Stop: 10/23/22 17:42 Last Admin: 09/24/22 08:17 Dose: 0.5 mg Magnesium Hydroxide (Magnesium Hydroxide Susp 30 Ml Udc) 30 ml PO Q24H PRN PRN Reason: Constipation Stop: 10/23/22 17:42 Metoclopramide HCl (Metoclopramide Hcl Inj 5 Mg/Ml 2 Ml Vial) 10 mg IV Q6H PRN PRN Reason: Nausea &/or Vomiting Stop: 10/23/22 17:42 Miscellaneous (Dutasteride 0.5 Mg Capsule~Order Awaiting Action) 1 each N/A QS [facility] Stop: 10/24/22 00:00 Last Admin: 09/25/22 07:45 Dose: Not Given Miscellaneous (Remove Nicoderm Patch) 1 each N/A DAILY@0859 [facility] Stop: 10/24/22 08:58 Last Admin: 09/25/22 07:45 Dose: 1 each Miscellaneous (Carbohydrates For Hypoglycemia ) 15 - 30 gm PO UD PRN PRN Reason: Hypoglycemia Protocol Stop: 10/23/22 18:21 Miscellaneous Information (Pharmacy Glycemic Mgmt Consult) 1 each N/A UD PRN PRN Reason: Consult Stop: 10/23/22 17:42 Naloxone HCl (Naloxone Hcl 0.4 Mg/1 Ml Vial/Carp) 0.1 mg IV Q5M PRN PRN Reason: Oversedation/Resp depression Stop: 10/23/22 17:42 Nicotine (Nicotine 21 Mg/24 Hr Tdsy) 21 mg TD QAM [facility] Stop: 10/23/22 18:29 Last Admin: 09/25/22 07:36 Dose: 21 mg Ondansetron HCl (Ondansetron Inj 2 Mg/Ml 2 Ml Vial) 4 mg IV Q6H PRN PRN Reason: Nausea &/or Vomiting Stop: 10/23/22 17:42 Ondansetron HCl (Ondansetron 4 Mg Od Tab) 4 mg PO Q6H PRN PRN Reason: Nausea Stop: 10/23/22 17:42 Oxycodone HCl (Oxycodone Hcl Ir 5 Mg Tab (Immediate Release)) 5 - 10 mg PO Q4H PRN PRN Reason: Pain & Pre PT Stop: 10/07/22 17:42 Last Admin: 09/25/22 07:41 Dose: 10 mg Pneumococcal Polyvalent Vaccine (Do Not Administer Pneumococcal Vaccine) 1 each N/A PRN PRN PRN Reason: Notification Stop: 10/23/22 17:42 Polyethylene Glycol (Polyethylene (Miralax) 17 Gm Pack) 17 gm PO Q6 [facility] Stop: 10/24/22 05:59 Last Admin: 09/25/22 11:26 Dose: 17 gm Rosuvastatin Calcium (Rosuvastatin Calcium 20 Mg Tab) 40 mg PO QAM [facility] Stop: 10/24/22 08:59 Last Admin: 09/25/22 07:34 Dose: 40 mg Senna/Docusate Sodium (Docusate Sodium/Senna 50/8.6mg Tab) 2 tab PO HS [facility] Stop: 10/23/22 20:59 Last Admin: 09/24/22 20:22 Dose: 2 tab Sodium Biphosphate/Sodium Phosphate (Sod Phosphate/Sod Biphosphate Enema 132 Ml Btl) 132 ml MT ONE PRN PRN Reason: Constipation Stop: 10/23/22 17:42 Tramadol HCl (Tramadol Hcl 50 Mg Tablet) 50 - 100 mg PO Q4H PRN PRN Reason: Moderate-Severe pain & Pre PT Stop: 10/23/22 17:42
--- NOTE | 2022-09-25 14:18 | Pharmacy Report ---
Pharmacy Glycemic Short Note 2 - Date of Service September 25, 2022 - Glycemic Short BSG Results (Last 24 hours): 09/24/22 09/24/22 09/25/22 16:53 20:24 05:43 Glucose 155 H POC Glucose 147 H 93 09/25/22 09/25/22 08:20 12:20 Glucose POC Glucose 167 H 243 H OUTPATIENT ANTIDIABETIC REGIMEN: * Metformin 1000 mg PO daily ASSESSMENT: * 62 y/o M admitted for lumbar surgery. Today is POD #2. Patient with history of Type 2 diabetes managed only on oral Metformin at home. * Patient was started on IV Dexamethasone 6 mg daily yesterday. * BSGs yesterday were [phone] mg/dl. He received 10 units basal and 22 units bolus yesterday. * Fasting BSG today was 155 mg/dl. Basal dosing continued the same. This may need increased for better fasting bsg. Will re-assess tomorrow. * Since post prandial BSG trended down below goal at HS yesterday, Novolog parameters loosened this morning from stress of 3 to stress of 2. PLAN FOR INPATIENT GLYCEMIC CONTROL: * Hold outpatient oral diabetes medications * Basal insulin * Lantus 10 units SQ QAM * Bolus insulin * NovoLog per scale ACHS or Q6hrs while NPO * Goal Range: Low 110 mg/dL - High 140 mg/dL * Correction Factor: 20 mg/dL/unit * Nutritional / Prandial insulin per carb ratio of 1 unit per 8 grams CHO consumed
[2022-09-25] MEDS ORDERED: SODIUM CHLORIDE 0.9% 500 ML IV SCH (15:00)
[2022-09-25] MEDS: DOCUSATE SODIUM/SENNA 50/8.6MG TAB PO SCH (20:15)
[2022-09-25] MEDS ORDERED: SODIUM CHLORIDE 0.9% 1000ML 1,000 ML IV SCH (21:15)
[2022-09-26] MEDS: DUTASTERIDE 0.5 MG SCH ×2 (00:18→07:01)
[2022-09-26] MEDS: oxyCODONE HCL IR 5 MG TAB (IMMEDIATE RELEASE) PO PRN ×2 (03:06→13:49)
[2022-09-26] MEDS: POLYETHYLENE (MIRALAX) 17 GM PACK PO SCH ×2 (06:12→12:55)
[2022-09-26] MEDS: CYCLOBENZAPRINE HCL 10 MG TAB PO PRN (06:12)
[2022-09-26 06:45] LABS: BUN Creatinine Ratio 20.8 (10-20); Calcium 8.3 mg/dl (8.5-10.1); Creatinine Clr Calc Pharmacy 109.5 ml/min; Est GFR (African American) 111.2 ml/min; Est GFR (Non-African American) 95.9 ml/min; Potassium 3.4 mmol/L (3.5-5.1)
[2022-09-26 06:46] LABS: Basophils # (auto) 0.03 K/uL (0-0.2); Basophils % (auto) 0.2 %; Eosinophils # (auto) 0.11 K/uL (0-0.50); Eosinophils % (auto) 0.6 %; Hematocrit (blood only) 36.6 % (42.0-52.0); Hemoglobin 12.3 g/dl (14.0-18.0); Immature Granulocytes # (auto) 0.12 K/uL (0.01-0.20); Immature Granulocytes % (auto) 0.7 %; Lymphocytes # (auto) 1.95 K/uL (1.2-3.4); Mean Corpuscular Hgb Conc 33.6 g/dL (32.0-36.0); Mean Corpuscular Volume 95.3 fL (80.0-100.0); Mean Platelet Volume 9.9 fL (9.4-12.4); Monocytes # (auto) 2.27 K/uL (0.11-0.59); Monocytes % (auto) 12.8 %; Neutrophils # (auto) 13.24 K/uL (1.40-6.50); Neutrophils % (auto) 74.7 %; Platelet Count 231 K/uL (130-400); RDW Coefficient of Variation 13.2 % (11.5-14.5); RDW Standard Deviation 45.9 fL (36.4-46.3); Red Blood Count 3.84 M/uL (4.70-6.10); White Blood Count 17.72 K/ul (4.8-10.8)
[2022-09-26] MEDS: dexAMETHasone 6 MG in SYRINGE 0 ML IV SCH (07:48)
[2022-09-26] MEDS: LORazepam 0.5 MG TAB PO PRN (08:18)
[2022-09-26] MEDS: lisinopril 2.5 MG TAB PO SCH (08:19)
[2022-09-26] MEDS: NICOTINE 21 MG/24 HR TDSY TD SCH (08:22)
[2022-09-26] MEDS: ROSUVASTATIN CALCIUM 20 MG TAB PO SCH (08:23)
[2022-09-26] MEDS ORDERED: LANTUS PER UNIT CHARGE SQ SCH (09:00)
[2022-09-26] MEDS: INSULIN ASPART PER UNIT CHARGE SC SCH ×2 (09:06→13:02)
--- NOTE | 2022-09-26 10:11 | Discharge Summary ---
Date of Service September 26, 2022 Admission HPI Per Admitting Provider This is a 62-year-old male presents with chronic persistent back and leg pain after failing course of nonoperative care is here for surgical intervention. Principal Diagnosis Lumbar spinal stenosis with radiculopathy Discharge Data Allergies Allergy/AdvReac Type Severity Reaction Status Date / Time No Known Drug Allergies Allergy Unknown NONE Verified 09/23/22 11:22 Consultations 09/23/22 17:43 Consult Hospitalist Routine Procedures Performed Operation Date: 09/23/22 12:25 Actual Procedures p L4-S1 Decompression and Fusion, spira cage L4-l5 and l5-s1, Spinal Cord Monitoring(Not Applicable) - Francisco High DO Ordered Studies 09/23/22 12:25 FL lumbar spine 2-3V Routine Hospital Course (1) Neurogenic claudication due to lumbar spinal stenosis: Patient 1 lumbar decompression fusion tolerated this well was taken to orthopedic for postoperative. Postop day #1 he was up and ambulating progress postop day #2 on postop day #3 pain was well controlled. STEVEN drain decreasing appropriately. Excellent strength testing. Subsequent discharge home. Discharge orders and instructions found in chart for further review. Total Time Total Time Spent Total Time Spent (In Minutes): 20 minutes Discharge Plan Discharge Items Patient Disposition: Home - Self-Care Reason For Visit: Other Intervertebral Disc Displacement, Lumbar Reg Discharge Diagnosis: Lumbar spinal stenosis with radiculopathy Activity: As commented below Non-emergency contact: Primary Care Provider Call non-emergency contact if: you have any medication questions Follow-up/Referrals: oRn Loo MD [Outside Practitioners] - Diet: Regular Addtl Attending Provider Instructions: ACTIVITY RECOMMENDATIONS: SELF CARE INSTRUCTIONS AFTER THORACIC/LUMBAR FUSIONS 1. You may walk to your tolerance. It is good exercise for your legs and back. Expect some back and intermittent leg aches and pains. 2. You may perform "counter-top" level activities (make a sandwich, vanda with a project, etc.). 3. No bending or lifting of more than 10 pounds or back twisting of any nature (roll like a log when turning in bed). 4. You may ride in a car for 20-30 minutes at a time. No driving until after your first visit with your doctor. 5. Frequent changes of position and restricting sitting to 30 minutes at a time will help limit the amount of back spasms and stiffness you may experience. 6. You may discontinue the use of ambulatory aids (cane, crutches, etc.) once your strength and confidence allow. 7. You may machine tool designer the shower and let water strike your incision when you arrive home at least once daily. Do not take a tub bath, sit in a hot tub or go into a swimming pool until after your first recheck in the office. SPECIAL CARE INSTRUCTIONS: VERY IMPORTANT TO READ AND REVIEW A. Your surgical incision has been closed with a cosmetic suture under the skin that will dissolve in about 6 weeks. In 14 days, you can use a pair of clean scissors and cut the suture that is left outside of the skin at the ends of your incision. 1. The small skin tapes can be removed 7 days after surgery if they have not fallen off by that point. 2. You may keep the wound open to air as much as possible to promote healing after post-op day number 5 unless told otherwise by your doctor. 3. If you think the wound looks like it is becoming infected (redness or worsening drainage) and/or you are experiencing fever, chill or worsening back pain and muscle spasms, contact the office so that we may evaluate you as soon as possible. B. Complications are uncommon, but please contact us if you have any signs or symptoms of: 1. wound infection (fever higher than 102.5 degrees F, redness, separation of wound, drainage, or increasing pain from the incision) 2. blood clots in legs (pain, swelling, redness and warmth in legs) 3. urinary tract infection (fever higher than 102.5 degrees F, burning upon urination or increased frequency of urination) 4. nerve problems (inability to walk on your toes or heels, numbness, loss of bowel or bladder control) 5. any other symptoms that concern you C. Please call the office at if you have any concerns or questions about your operation or recovery. D. No smoking! Smoking drastically decreases the chance of a solid fusion. E. Do not take any anti-inflammatory medications (Indocin, Advil, Motrin, Aspirin, Naprosyn, etc.) as these may inhibit the chance of a solid fusion. Tylenol is okay to take for pain. MANAGING PAIN AFTER SPINAL SURGERY 1. Narcotic medication is intended for short-term use and will be provided for surgical pain. Surgical pain usually lasts for a period of 4-6 weeks. Narcotic medication includes Percocet, Vicodin, Darvocet, Tylenol #3 or Lortab. 2. Longer-term pain is more appropriately treated with non-narcotic medication such as Tylenol ES. 3. Muscle spasm is not appropriately treated with narcotics. Muscle relaxers such as Soma, Flexeril or Skelaxin can be used along with Tylenol ES. 4. Remember that we all live with some "aches and pains". This is not unusual or uncommon after an injury or as we get older. a. Back pain is expected and may include muscle spasms for 4 to 6 weeks after surgery. The pain should gradually improve. If the pain worsens for no apparent reason, please contact the office. b. Intermittent leg pain may also be experienced and should not be concerned about unless it worsens for no apparent reason. If so, please contact the office. 5. We will provide appropriate medication within the normal guidelines of their prescribed use. We will also be very cautious and aware of potential abuse and extended duration of patients' medication needs. a. Pain medications are for your comfort and to assist with sleep and rest so that the tissue can heal. They are not provided in order to return to normal activity and should not be used through the day. To do so or worsening pain at night can result from ongoing tissue damage and development of tolerance to the prescribed medicine. 6. Please allow 2-3 days to process refills. Prescriptions will not be mailed but must be picked up at the office. FOLLOW UP VISIT: Keep your scheduled follow-up appointment. Any questions, please call the office at . Pending Studies at Discharge: No Stand-Alone Forms: [facility], Smoking Cessation Medications and DC Order Prescriptions: New tramadol 50 mg tablet 50 mg PO Q6H PRN (Reason: pain, moderate) Qty: 30 0RF oxycodone 5 mg tablet 5 mg PO Q6H PRN (Reason: pain, severe) Qty: 30 0RF cyclobenzaprine 10 mg Tablet 10 mg PO Q8 PRN (Reason: muscle spasm) Qty: 20 0RF Continued cyclobenzaprine 10 mg Tablet 10 mg PO TID PRN (Reason: Pain) acetaminophen 650 mg Tablet Extended Release 1,300 mg PO Q12H PRN (Reason: Pain) metformin 1,000 mg Tablet 1,000 mg PO BID lisinopril 2.5 mg Tablet 2.5 mg PO QAM dutasteride 0.5 mg Capsule 0.5 mg PO QAM rosuvastatin 40 mg Tablet 40 mg PO QAM Discharge Orders: Discharge Order (Routine); Ordered 09/26/22 Ordered By: Francisco Freeman/Other Patient Handouts: High Blood Sugar (Hyperglycemia), Hypoglycemia (Low Blood Sugar), Managing Type 2 Diabetes, Special Foot Care for Diabetes Admission Data Admit Date/Time: 09/23/22 16:22 Attending Provider: Francisco High Admit Provider: Francisco High Primary Care Provider: Kathy Abdi. Other Providers: Nayla Salinas ; Dylan Simmons
[2022-09-26] MEDS ORDERED: POTASSIUM CHLORIDE CRTAB 20 MEQ TABCR PO STA (12:30)
--- NOTE | 2022-09-26 12:33 | Hospitalist Progress Note ---
Date of Service September 26, 2022 Assessment & Plan (1) Status post lumbar surgery: (2) Neurogenic claudication due to lumbar spinal stenosis: Plan: Post op 09/23/2022, day#2 S/P L3-S1 decompression and fusion by Dr Anila SYKES#300 mL -pain management per ortho -wound management per ortho -PT/OT as appropriate -DVT prophylaxis per ortho -incentive spirometry -monitor H&H for acute blood loss anemia, preop Hgb: 15.4 per chart review -Hemoglobin hemoglobin remains stable at 13.5 -Hemoglobin remains stable at 14.3 with normal electrolytes and kidney function -Hemoglobin minimally decreased to 12.3 likely secondary to hemodilution Leukocytosis Secondary to steroid No signs and/or symptoms of infection (3) Diabetes mellitus, type 2: Plan: A1c: 7.5 on 09/09/2022 per chart review -Hold home oral agents -NovoLog sliding scale per protocol. Monitor BSG may need to adjust Blood sugar is stable (4) Hypertension: Plan: - Continue lisinopril -Blood pressure is maintained at the upper limit at 146/89 (5) Hyperlipidemia: Plan: - Continue rosuvastatin (6) BPH (benign prostatic hyperplasia): Plan: - Continue dutasteride (7) Sleep apnea: Plan: - CPAP at bedtime (8) Tobacco use: Plan: - Smoking cessation encouraged -Nicotine patch DVT Prophylaxis -SCDs Disposition per primary service Follows with Kathy Abdi PA-C in [place] for routine care Medically stable to be discharged today Admission and Anticipated Discharge Date Admission Date: September 23, 2022 Subjective 09/24/2022 The patient was seen and examined in medical floor He is a status post L4 S1 decompression and fusion Complains to have some back pain but denies any other symptoms 09/25/2022 The patient was seen and examined in medical floor He has been feeling much better with minimal pain at the back Has been getting PT and OT evaluation and likely discharge tomorrow 09/26/2022 The patient was seen and examined in medical floor He complains to have back pain but seems to be stable His tachycardia is almost resolved He denies any other significant symptoms and will be going home this afternoon Review of Systems Review of Systems: All systems reviewed and are unremarkable except as noted below Physical Exam Physical Exam: Sitting on a chair without any acute Constitutional: well developed, well nourished, + ill appearing and + obese Eyes: PERRL, conjunctivae normal, anicteric sclerae ENMT: external ear and nose normal, oropharynx normal Neck: trachea midline, no thyromegaly Respiratory: no respiratory distress Auscultation: lungs clear to auscultation bilaterally Cardiovascular: Rate/Rhythm: regular rate, regular rhythm and + tachycardic Heart Sounds: normal S1 and normal S2; no murmur Extremities: no edema Gastrointestinal (Abdomen): Inspection/Auscultation: normal bowel sounds; abd omen not distended Percussion/Palpation: abdomen soft; abdomen nontender Musculoskeletal: Localized back tenderness and pain. Neurologic: normal touch/pain/proprioception and moves all extremities; no focal motor deficits Psychiatric: A+Ox3, euthymic affect Lymphatic: no cervical or axillary lymphadenopathy Results & Data Results & Data Vital Signs (Past 12 Hours) Vital Signs Temp Pulse Resp BP Pulse Ox O2 Del Method 09/26/22 09:55 106 H 95 Room Air 09/26/22 07:58 36.7 C 112 H 20 134/73 94 Room Air Laboratory Results Short CBC 09/26/22 Range/Units 06:01 WBC 17.72 H (4.8-10.8) K/ul Hgb 12.3 L (14.0-18.0) g/dl Hct 36.6 L (42.0-52.0) % Plt Count 231 (130-400) K/uL BMP 09/26/22 06:01 Sodium 137 Potassium 3.4 L Chloride 104 Carbon Dioxide 27 BUN 16 Creatinine 0.77 Glucose 139 H Calcium 8.3 L Medications Administered Current Inpatient Medications Acetaminophen (Acetaminophen 500 Mg Tab) 1,000 mg PO Q8H PRN PRN Reason: MILD Pain Scale 1,2,3 & Pre PT Stop: 10/23/22 17:42 Al Hydrox/Mg Hydrox/Simethicone (Aluminum/Magnesium Susp 30 Ml Udc) 30 ml PO Q6H PRN PRN Reason: Dyspepsia Stop: 10/23/22 17:42 Bisacodyl (Bisacodyl 10 Mg Supp) 10 mg IA DAILY PRN PRN Reason: Constipation Stop: 10/23/22 17:42 Cyclobenzaprine HCl (Cyclobenzaprine Hcl 10 Mg Tab) 10 mg PO Q8 PRN PRN Reason: Muscle Spasm Stop: 10/25/22 07:29 Last Admin: 09/26/22 06:12 Dose: 10 mg Dextrose (Dextrose 50% 50 Ml Syringe) 25 - 50 ml IV UD PRN; Protocol PRN Reason: Hypoglycemia Protocol Stop: 10/23/22 18:21 Diphenhydramine HCl (Diphenhydramine Capsule 25 Mg Cap) 25 mg PO Q6H PRN PRN Reason: Allergic Rhinitis/Insomnia Stop: 10/23/22 17:42 Famotidine (Famotidine 20 Mg Tab) 20 mg PO Q12H PRN PRN Reason: Dyspepsia Stop: 10/23/22 17:42 Glucagon (Glucagon For Inj 1 Mg Vial) 1 mg SQ UD PRN; Protocol PRN Reason: Hypoglycemia Protocol Stop: 10/23/22 18:21 Glucose (Glucose 10 Tab/Tube) 4 - 8 tab PO UD PRN; Protocol PRN Reason: Hypoglycemia Treatment Stop: 10/23/22 18:21 Glucose (Glucose 40% Gel 15 Gm Tube) 15 - 30 gm PO UD PRN; Protocol PRN Reason: Hypoglycemia Protocol Stop: 10/23/22 18:21 Hydromorphone HCl (Hydromorphone Inj 0.5 Mg/0.5 Ml Syr) 0.5 mg IV Q3H PRN PRN Reason: MODERATE Pain (Scale 4,5,6) & Pre PT Stop: 10/07/22 17:42 Last Admin: 09/25/22 00:59 Dose: 0.5 mg Hydromorphone HCl (Hydromorphone Inj 1 Mg/Ml Syringe) 1 mg IV Q3H PRN PRN Reason: SEVERE Pain (Scale 7,8,9,10) Stop: 10/07/22 17:42 Last Admin: 09/24/22 07:30 Dose: 1 mg Hydroxyzine HCl (Hydroxyzine Hcl 25 Mg Tab) 25 mg PO Q8H PRN PRN Reason: Anxiety Stop: 10/23/22 17:42 Promethazine HCl 12.5 mg/ (Sodium Chloride) 50.5 mls @ 202 mls/hr IV Q6H PRN PRN Reason: Nausea &/or Vomiting Stop: 10/23/22 17:42 Influenza Virus Vaccine Quadrival (Do Not Administer Flu Vaccine) 1 each N/A PRN PRN PRN Reason: Notification Stop: 10/23/22 17:42 Insulin Aspart (Insulin Aspart Per Unit) 0 units SC ACHS [facility] Stop: 10/23/22 20:59 Last Admin: 09/26/22 09:06 Dose: 2 units Insulin Glargine (Lantus Per Unit Charge) 15 units SQ QAM [facility] Stop: 10/26/22 08:59 Last Admin: 09/26/22 09:04 Dose: 15 units Lisinopril (Lisinop[facility] 2.5 Mg Tab) [facility] [place]: 10/24/22 08:59 Last Admin: 09/26/22 08:19 Dose: 2.5 mg Lorazepam (Lorazepam 0.5 Mg Tab) 0.5 mg PO Q8H PRN PRN Reason: Sedation/Anxiety Stop: 10/23/22 17:42 Last Admin: 09/26/22 08:18 Dose: 0.5 mg Lorazepam (Lorazepam 2 Mg/1 Ml Vial) 0.5 mg IV Q8H PRN PRN Reason: Sedation/Anxiety Stop: 10/23/22 17:42 Last Admin: 09/24/22 08:17 Dose: 0.5 mg Magnesium Hydroxide (Magnesium Hydroxide Susp 30 Ml Udc) 30 ml PO Q24H PRN PRN Reason: Constipation Stop: 10/23/22 17:42 Last Admin: 09/25/22 17:11 Dose: 30 ml Metoclopramide HCl (Metoclopramide Hcl Inj 5 Mg/Ml 2 Ml Vial) 10 mg IV Q6H PRN PRN Reason: Nausea &/or Vomiting Stop: 10/23/22 17:42 Miscellaneous (Dutasteride 0.5 Mg Capsule~Order Awaiting Action) 1 each N/A QS [facility] Stop: 10/24/22 00:00 Last Admin: 09/26/22 07:01 Dose: Not Given Miscellaneous (Remove Nicoderm Patch) 1 each N/A DAILY@0859 [facility] Stop: 10/24/22 08:58 Last Admin: 09/26/22 08:22 Dose: 1 each Miscellaneous (Carbohydrates For Hypoglycemia ) 15 - 30 gm PO UD PRN PRN Reason: Hypoglycemia Protocol Stop: 10/23/22 18:21 Miscellaneous Information (Pharmacy Glycemic Mgmt Consult) 1 each N/A UD PRN PRN Reason: Consult Stop: 10/23/22 17:42 Naloxone HCl (Naloxone Hcl 0.4 Mg/1 Ml Vial/Carp) 0.1 mg IV Q5M PRN PRN Reason: Oversedation/Resp depression Stop: 10/23/22 17:42 Nicotine (Nicotine 21 Mg/24 Hr Tdsy) 21 mg TD QAM [facility] Stop: 10/23/22 18:29 Last Admin: 09/26/22 08:22 Dose: 21 mg Ondansetron HCl (Ondansetron Inj 2 Mg/Ml 2 Ml Vial) 4 mg IV Q6H PRN PRN Reason: Nausea &/or Vomiting Stop: 10/23/22 17:42 Last Admin: 09/25/22 22:29 Dose: 4 mg Ondansetron HCl (Ondansetron 4 Mg Od Tab) 4 mg PO Q6H PRN PRN Reason: Nausea Stop: 10/23/22 17:42 Oxycodone HCl (Oxycodone Hcl Ir 5 Mg Tab (Immediate Release)) 5 - 10 mg PO Q4H PRN PRN Reason: Pain & Pre PT Stop: 10/07/22 17:42 Last Admin: 09/26/22 03:06 Dose: 10 mg Pneumococcal Polyvalent Vaccine (Do Not Administer Pneumococcal Vaccine) 1 each N/A PRN PRN PRN Reason: Notification Stop: 10/23/22 17:42 Polyethylene Glycol (Polyethylene (Miralax) 17 Gm Pack) 17 gm PO Q6 [facility] Stop: 10/24/22 05:59 Last Admin: 09/26/22 06:12 Dose: 17 gm Potassium Chloride (Potassium Chloride Crtab 20 Meq Tabcr) 40 meq PO NOW STA Stop: 09/26/22 12:31 Rosuvastatin Calcium (Rosuvastatin Calcium 20 Mg Tab) 40 mg PO QAM [facility] Stop: 10/24/22 08:59 Last Admin: 09/26/22 08:23 Dose: 40 mg Senna/Docusate Sodium (Docusate Sodium/Senna 50/8.6mg Tab) 2 tab PO HS [facility] Stop: 10/23/22 20:59 Last Admin: 09/25/22 20:15 Dose: 2 tab Sodium Biphosphate/Sodium Phosphate (Sod Phosphate/Sod Biphosphate Enema 132 Ml Btl) 132 ml IA ONE PRN PRN Reason: Constipation Stop: 10/23/22 17:42 Tramadol HCl (Tramadol Hcl 50 Mg Tablet) 50 - 100 mg PO Q4H PRN PRN Reason: Moderate-Severe pain & Pre PT Stop: 10/23/22 17:42
== END 2022-09-26 15:39 | disposition home or self-care (01) | DRG 455 ==
LOC: ASU 10:51 → 3E 16:22